=== PATIENT | male | born 1990 | race Caucasian/White ===

== ENCOUNTER 2022-10-11 09:20 | Emergency (ER) | payer SELFPAY ==
[2022-10-11 09:38] VITALS: BP 126/67; PULSE 114; RESP 18; TEMP 100.3; BMI 47.2
[2022-10-11] MEDS ORDERED: ACETAMINOPHEN 500 MG TABLET (FP) PO ONE (10:19)
[2022-10-11] MEDS ORDERED: ACETAMINOPHEN 325 MG TABLET (FP) ONE (10:25)
== END 2022-10-11 12:02 | disposition home or self-care (01) ==
LOC: JER 09:20
DX: J06.9 Acute upper respiratory infection, unspecified (principal)
CPT/HCPCS: 0241U-QW; 99283-25